=== PATIENT | female | born 1970 | race African-American/Black ===

== ENCOUNTER 2022-10-14 04:31 | Day surgery (SDC) | payer OTHER ==
[2022-10-13 11:14] VITALS: BMI 40.3
[2022-10-14 11:42] VITALS: TEMP 98.7
[2022-10-14 12:11] VITALS: PULSE 75
[2022-10-14 12:15] VITALS: BP 140/77; RESP 16
== END 2022-10-14 13:40 | disposition home or self-care (01) ==
LOC: JASU-ENDO 04:31
PROVIDERS: ATTEND Internal Medicine Gastroenterology
PROC: 0DBP8ZX Excision of Rectum, Via Natural or Artificial Opening Endoscopic, Diagnostic (ICD-10-PCS; principal; 2022-10-14 12:00)
DX: Z12.11 Encounter for screening for malignant neoplasm of colon (principal); D12.8 Benign neoplasm of rectum; K57.30 Diverticulosis of large intestine without perforation or abscess without bleeding; K64.8 Other hemorrhoids
CPT/HCPCS: 88305-TC